=== PATIENT | male | born 1990 | race Caucasian/White ===

== ENCOUNTER 2016-08-31 22:49 | Emergency (ER) | payer SELFPAY | END 2016-09-01 00:23 | disposition left against medical advice (07) | LOC: FER 22:49 | DX: R22.0 Localized swelling, mass and lump, head (principal); Z53.8 Procedure and treatment not carried out for other reasons ==

== ENCOUNTER 2016-09-07 11:44 | Emergency (ER) | payer SELFPAY | END 2016-09-07 13:15 | disposition home or self-care (01) | LOC: FER 11:44 | DX: J45.909 Unspecified asthma, uncomplicated (principal) | CPT/HCPCS: 71020; 87450; 87804; 87899; J0561; J1030 ==